=== PATIENT | female | born 2000 ===

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

== ENCOUNTER → 2023-06-08 | Outpatient (CLI) | payer SELFPAY ==
[2023-06-10 04:09] LABS: CHLAMYDIA TRACHOMATIS, NAA Negative (Negative)
== END ==
LOC: LAB 15:22 → LAB SHORT 15:22
PROVIDERS: Family Medicine
DX: Z11.3 Encounter for screening for infections with a predominantly sexual mode of transmission (principal)
CPT/HCPCS: 87491; 87591